=== PATIENT | male | born 1990 | race African-American/Black ===

== ENCOUNTER 2019-01-19 15:59 | Outpatient (CLI) | payer BC ==
--- NOTE | 2019-01-19 16:29 | RAD ---
TWO VIEWS OF THE CHEST: 01/19/19 COMPARISON: 08/28/10 HISTORY: Cough for 2.5 weeks. FINDINGS: Two views of the chest show normal sized cardiomediastinal silhouette. There is no evidence of consol idation, mass, or pleural effusion. The bones are unremarkable. IMPRESSION: No evidence of acute cardiopulmonary disease. POS: [id number]
== END 2019-01-19 16:00 | disposition home or self-care (01) ==
LOC: BICRAD 15:59
PROVIDERS: ATTEND Internal Medicine
DX: R05 Cough (principal)
CPT/HCPCS: 71046